=== PATIENT | male | born 1940 | race Caucasian/White ===

== ENCOUNTER 2019-10-11 03:01 | Observation (INO) | payer MEDICARE, BC ==
[2019-10-11] MEDS ORDERED: Acetaminophen 325 MG TAB PO PRN (04:20)
[2019-10-11] MEDS ORDERED: Acetaminophen 650 MG Suppository PR PRN (04:20)
--- NOTE | 2019-10-11 04:26 | PDOC.HHP ---
Hospitalist HPI - History of Present Illness Unsteady History of Present Illness: Patient presents complaining of sudden weakness/unsteadiness that started around 10pm last night. He states he had gotten home from [employer] and sat down to watch TV. When he got up after a while he noted weakness in his legs which he states felt "wobbly". Denies any dizziness/spinning sensation. No shortness of breath or chest pain. Denies any headache. He walked to and continued to feel unsteady. He took a shower and reports feeling as if his legs would give out. Denies feeling unwell in recent days. No n/v. No abdo pain. No stool changes. Overall has felt well in himself. ED Course: He was seen in [place] initially and underwent CT imaging of the brain that showed no acute changes. Labs done were unremarkable. Urinalysis normal. CXR unremarkable. patient was treated with aspirin 324 mg, meclizine and given 500 cc NS IV. Hospitalist ROS - Review of Systems Constitutional: reports: weakness. denies: fever, chills, sweats, malaise, other Eyes: denies: pain, vision change, conjunctivae inflammation, eyelid inflammation, redness, other ENT: denies: ear pain, ear discharge, nose pain, nose discharge, nose congestion , mouth pain, mouth swelling, throat pain, throat swelling, other Respiratory: denies: cough, dry, shortness of breath, hemoptysis, SOB with excertion, pleuritic pain, sputum, wheezing, other Cardiovascular: denies: chest pain, palpitations, orthopnea, paroxysmal noc. dyspnea, edema, light headedness, other Gastrointestinal: denies: nausea, vomiting, abdominal pain, diarrhea, constipation, melena, hematochezia, other Genitourinary: denies: dysuria, frequency, incontinence, hematuria, retention, other Musculoskeletal: denies: neck pain, shoulder pain, arm pain, back pain, hand pain, leg pain, foot pain, other Skin: denies: rash, lesions, gregorio, bruising, other Neurological: denies: weakness, numbness, incoordination, change in speech, confusion, seizures, other Hospitalist History - Past Medical History Source: patient Cardiac: reports: HTN ENT: reports: Other (Hard of hearing) - Past Surgical History Past Surgical History: reports: Cholecystectomy, Other (prostate reduction) - Family History Family History: reports: no pertinent history - Social History Smoking Status: Never smoker Alcohol: reports: None Drugs: reports: none Living Situation: With Family Activity level: independent ambulation (at baseline) - Exam General Appearance: NAD, awake alert Eye: PERRL, anicteric sclera ENT: normocephalic atraumatic, no oropharyngeal lesions, moist mucosa Neck: supple, symmetric, no lymphadenopathy Heart: normal peripheral pulses, irregular Respiratory: CTAB, no wheezes, no rales, no ronchi, normal chest expansion Gastrointestinal: soft, non-tender, non-distended, normal bowel sounds, no guarding, no rigidity Extremities: no edema Skin: normal turgor, no lesions, no rashes Neurological: cranial nerve grossly intact, normal sensation to touch, no weakness, no focal deficits Musculoskeletal: normal tone, normal strength, no muscle wasting Psychiatric: normal affect, normal behavior, A&O x 3 Hospitalist Results - Radiology Interpretation CT scan - head Status: report reviewed by va Hospitalist H&P A/P - Problem (1) Weakness Code(s): R53.1 - WEAKNESS Status: Acute (2) Irregular heart rate Code(s): I49.9 - CARDIAC ARRHYTHMIA, UNSPECIFIED Status: Acute (3) Hypertension Code(s): I10 - ESSENTIAL (PRIMARY) HYPERTENSION Status: Acute (4) Hyperlipidemia Code(s): E78.5 - HYPERLIPIDEMIA, UNSPECIFIED Status: Acute - Plan Plan: Obtain baseline EKG. Orthostatic BPs. Add-on lactic acid and procalcitonin. Continuous cardiac monitoring. Monitor BP. resume home meds once verified. MRI brain in AM as per discussion with Dr. Malik. PT/OT. GI Prophylaxis with Famotidine. Code status: FULL. Surrogate decision maker is his : Gerri Krishnamurthy.
[2019-10-11 05:09] VITALS: BMI 30.4
[2019-10-11 07:41] VITALS: TEMP 97.8
--- NOTE | 2019-10-11 08:46 | MRI ---
MRI BRAIN WITHOUT CONTRAST: HISTORY: TIA CORRELATION: CT scan from 10/11/2019. FINDINGS: No restricted diffusion is seen. There are a few foci of T2 prolongation in the periventricular white matter, consistent with mild chronic small vessel ischemic disease. The ventricular size is appropriate and the basilar cisterns are patent. No evidence of acute infarct, hemorrhage, midline shift or abnormal extra-axial fluid collections is seen. There is mild mucosal disease in the paranasal sinuses. IMPRESSION: No evidence of acute intracranial process.
[2019-10-11] MEDS ORDERED: Famotidine/PF 20 mg/2ml Vial SLOW IVP SCH (09:00)
[2019-10-11] MEDS ORDERED: Aspirin 81 mg Enteric Coated Tablet PO SCH (09:00)
[2019-10-11 12:13] VITALS: BP 176/94
--- NOTE | 2019-10-12 03:20 | DIS ---
DATE OF ADMISSION: 10/11/2019 DATE OF DISCHARGE: 10/11/2019 PRIMARY CARE PHYSICIAN: Anival Black MD. REASON FOR ADMISSION: Weakness and unsteadiness. DISCHARGE DIAGNOSES: 1. Dehydration. 2. Weakness, resolved. 3. Hypertension. 4. Hyperlipidemia. PROCEDURES: 1. CT of the brain in [place] showing no acute intracranial abnormalities. 2. MRI of the brain showing no evidence of acute intracranial process. CONSULTATIONS: None. SUMMARY OF HOSPITAL COURSE: This is a 78-year-old white male who started to feel unsteady on his feet and weakness around 10 p.m. the night before. He had been out traveling to go to [employer] during the day, had not drunk much in the way of fluids. He denies any other symptoms. He came into the [facility]. They did a CT of the brain with no acute changes. He was given meclizine 500 mL of normal saline and aspirin and transferred here in our hospital. He has remained asymptomatic. No more weakness. No dizziness at all. He did have an MRI of the brain, which was normal. He was monitored on color television console monitor overnight with no evidence of arrhythmias. He stated that he had started feeling better after getting the fluid in the outside emergency room. On exam later in the day of his admission, he had a normal physical exam and was ready to go home. DISCHARGE MANAGEMENT: Discharged home. ACTIVITY: As tolerated. DIET: Healthy heart diet. FOLLOWUP: Follow up with Dr. Anival Black in 7 days. Pending results, he had an echocardiogram, that is not yet read. Dr. Black can look up and follow up on those results. MEDICATIONS: 1. Amitriptyline 10 mg at night. 2. Losartan 25 mg at night. Job ID: [id number]
== END 2019-10-11 11:02 | disposition home or self-care (01) ==
LOC: ERS 03:01 → ERHOLD 03:48 → 2SW 05:02
PROVIDERS: ADMIT Internal Medicine; ATTEND Internal Medicine
DX: R53.1 Weakness (principal); E86.0 Dehydration; I10 Essential (primary) hypertension; E78.5 Hyperlipidemia, unspecified; I49.9 Cardiac arrhythmia, unspecified; Z79.899 Other long term (current) drug therapy; Z88.1 Allergy status to other antibiotic agents; Z88.2 Allergy status to sulfonamides; Z91.048 Other nonmedicinal substance allergy status
CPT/HCPCS: 70551; 93005; 93306; 97139 ×3; 99285; G0378 ×2; 93010

== ENCOUNTER 2019-11-14 10:23 | Outpatient (CLI) | payer MEDICARE, BC ==
--- NOTE | 2019-11-14 12:30 | CT ---
CT ABDOMEN AND PELVIS WITH AND WITHOUT IV CONTRAST: HISTORY: Gross hematuria. COMPARISON: None. FINDINGS: There are minimal dependent changes in the lung bases. There are cysts in the liver measuring 3.8 cm in the right lobe and 12 mm in the left lobe. The spleen, pancreas, and adrenal glands are normal. The patient is post cholecystectomy. There is a 3 mm calculus in the inferior pole of the left kidney. No calculi are seen in the right k idney, either ureter, or the urinary bladder. No hydroureteral nephrosis is seen on either side. Th ere is a 3.8 cm parapelvic cyst and a 2 cm cortical cyst in the left kidney. No enhancing renal mass is seen on either side. There is normal contrast excretion into the ureters or the urinary bladder. The prostate is enlarged. No free air, free fluid, or lymphadenopathy is seen in the abdomen or pelvis. There are vascular caprice cifications without evidence of aneurysmal dilatation of the abdominal aorta. There are degenerative changes in the spine. The small bowel loops are not abnormally dilated. There is sigmoid diverticu losis without diverticulitis. IMPRESSION: 1. Liver cysts. 2. Left renal cyst. 3. Tiny 3 mm nonobstructing left renal calculus. 4. Prostatic enlargement. 5. Sigmoid diverticulosis. POS: [facility]
== END 2019-11-14 10:24 | disposition home or self-care (01) ==
LOC: BICCT 10:23
PROVIDERS: ATTEND Urology
DX: R31.0 Gross hematuria (principal); N28.1 Cyst of kidney, acquired; K76.89 Other specified diseases of liver; N20.0 Calculus of kidney; N40.0 Benign prostatic hyperplasia without lower urinary tract symptoms; K57.30 Diverticulosis of large intestine without perforation or abscess without bleeding
CPT/HCPCS: 74178; 82565

== ENCOUNTER 2019-11-20 16:44 | Outpatient (CLI) | payer MEDICARE, BC ==
[2019-11-20 17:38] LABS: Hemoglobin 16.6 g/dL (14.0-18.0); Mean Corpuscular HGB CONC 37.4 g/dL (32.0-36.0); Mean Corpuscular Hemoglobin 34.1 pg (27.0-31.0); Mean Corpuscular Volume 91.1 fL (78.0-98.0); Mean Platelet Volume 8.7 fL (7.4-10.4); Platelet Count 200 thou/uL (130-400); RBC Distribution Width 11.5 % (11.5-14.5); Red Blood Cell (RBC) Count 4.88 mill/uL (4.70-6.10); White Blood Cell (WBC) Count 8.7 thou/uL (4.8-10.8)
[2019-11-20 17:43] LABS: INR-International Normal Ratio 0.9; PTT 29.8 SEC (22.9-36.1); Prothrombin Time 12.4 SEC (12.0-14.7)
[2019-11-20 17:56] LABS: Anion Gap 14 mmol/L (10-20); BUN (Urea Nitrogen) 19 mg/dL (8.4-25.7); Calc. Creatinine Clearance 0 mL/min (70-130); Calcium 9.4 mg/dL (7.8-10.44); Carbon Dioxide 26 mmol/L (23-31); Chloride 102 mmol/L (98-107); Estimated GFR-MDRD 72; Glucose 102 mg/dL (83-110); Potassium 4.8 mmol/L (3.5-5.1); Sodium 137 mmol/L (136-145)
== END 2019-11-20 16:45 | disposition home or self-care (01) ==
LOC: LABBT 16:44
PROVIDERS: ATTEND Urology
DX: Z01.812 Encounter for preprocedural laboratory examination (principal); R31.0 Gross hematuria; N40.1 Benign prostatic hyperplasia with lower urinary tract symptoms; R39.12 Poor urinary stream
CPT/HCPCS: 80048; 81001; 85027; 85610; 85730; 87086

== ENCOUNTER 2019-11-22 08:33 | Observation (INO) | payer MEDICARE, BC ==
[2019-11-20 17:01] VITALS: BMI 30.4
[2019-11-22] MEDS ORDERED: PROPOFOL 200 MG/20 ML VIAL ONE (10:07)
[2019-11-22] MEDS ORDERED: Ondansetron PF 4 MG/2 ML Vial ONE (10:07)
[2019-11-22] MEDS ORDERED: Lidocaine 1% PF 5 ML VIAL ONE (10:07)
[2019-11-22] MEDS ORDERED: Levofloxacin 500 mg/D5W 100 ml Premix Bag ONE (11:45)
[2019-11-22] MEDS ORDERED: B & O ONE (12:02)
[2019-11-22] MEDS ORDERED: Fentanyl 100 MCG/2 ML VIAL ONE ×2 (12:18→13:59)
--- NOTE | 2019-11-22 12:23 | EKG ---
Test Reason : PREOP Blood Pressure : / mmHG Vent. Rate : 059 BPM Atrial Rate : 059 BPM P-R Int : 154 ms QRS Dur : 096 ms QT Int : 428 ms P-R-T Axes : 061 -35 047 degrees QTc Int : 423 ms Sinus bradycardia Left axis deviation Abnormal ECG When compared with ECG of 11-OCT-2019 07:19, (Unconfirmed) No significant change was found Confirmed by ALEC FRITZ, DR. S. (4) on 11/22/2019 12:22:48 PM Referred By: FARHAT Confirmed By:DR. Sunil MICHAEL MD
[2019-11-22] MEDS ORDERED: Ondansetron PF 4 MG/2 ML Vial IVP PRN (13:18)
[2019-11-22] MEDS ORDERED: hydrALAZINE 20 MG/ML VIAL SLOW IVP PRN (13:18)
[2019-11-22] MEDS ORDERED: Bisacodyl 10 MG SUPP PR PRN (13:18)
[2019-11-22] MEDS ORDERED: Acetaminophen 500 MG TAB PO PRN (13:18)
[2019-11-22] MEDS ORDERED: Hyoscyamine Sulfate SL 0.125 mg Tablet SL PRN (13:18)
[2019-11-22] MEDS ORDERED: Morphine 2 MG/ML SYRINGE SLOW IVP PRN (13:18)
[2019-11-22] MEDS ORDERED: Mag-Al 1200 mg/1200 mg/30 ML UDCUP PO PRN (13:18)
[2019-11-22] MEDS ORDERED: Phenazopyridine HCl 97.5 MG TABLET PO PRN (13:18)
[2019-11-22] MEDS ORDERED: Hyoscyamine Sulfate SL 0.125 mg Tablet ONE ×2 (14:25→14:27)
[2019-11-22] MEDS ORDERED: Phenazopyridine HCl 97.5 MG TABLET ONE ×2 (14:26→14:27)
[2019-11-22] MEDS: traMADol HCl 50 MG TAB PO PRN ×2 (16:20→22:03)
--- NOTE | 2019-11-22 19:42 | OP ---
DATE OF PROCEDURE: 11/22/2019 SERVICES: Urology. PREOPERATIVE DIAGNOSIS: Gross hematuria and BPH. POSTOPERATIVE DIAGNOSIS: Gross hematuria and BPH. PROCEDURE PERFORMED: Transurethral vaporization of prostate. INDICATION FOR PROCEDURE: Mr. Krishnamurthy is a 79-year-old white male with prior history of gross hematuria, urinary retention and BPH. He underwent TURP in the past and has recovered quite well from this. Unfortunately, the patient recently began having gross hematuria about 3 years after his original surgery. He was also complaining of urinary symptoms. Cystoscopy in the office demonstrated a bleeding vessel near the bladder neck as well as distal regrowth of the prostate. I have discussed transurethral vaporization of prostate with him along with fulguration of bleeding vessels with all risks and benefits and he has agreed to proceed forward. DESCRIPTION OF PROCEDURE: After identification of armband and verification of consent, the patient was brought back to the operating room and he underwent general anesthesia with an LMA. He was then placed in dorsal lithotomy position and prepped and draped in sterile fashion. After appropriate time-out lubricated, 26-Japanese resectoscope sheath was passed with ease through the urethra into the bladder. The prostate did show distal regrowth as previously had been described on outpatient cystoscopy. The visual obturator was switched out for the bipolar plasma button loop for the gyrus resectoscope. The bladder neck was fulgurated and cauterized into the bleeding vessels that had all been completely destroyed and fulgurated circumferentially around the bladder neck. Any large vessels that were identified were fulgurated and cauterized. The distal regrowth was then vaporized down until flushed with the rest of the prostate tissue. There was minimal regrowth of the prostate tissue, but since the patient is in the operating room, I went ahead and re-vaporized the prostate circumferentially from the prostate to the verumontanum to ensure that the patient has maximum amount of prostate removal. Upon completion, there was excellent hemostasis. There was no tissue specimen secondary to vaporization. Any areas that were even mildly bleeding were cauterized. Upon completion, both ureters were in orthotopic location unharmed. The resectoscope was removed and attempts to pass an 18-Japanese Perez catheter were unsuccessful secondary to coiling in the bulbar urethra. The cystoscope was then used to guide back into the patient's bladder and a Amplatz Super Stiff wire was then placed into the patient's bladder and then the cystoscope removed. An 18-Japanese Councill tip catheter was then placed over the Super Stiff wire to the bladder and 20 mL of sterile water placed into the balloon. The wire was then removed and the catheter affixed to gravity drainage. B and O suppository were placed in the patient's rectum. He was then awakened, taken out of positioning, and taken to PACU for recovery in stable condition. COMPLICATIONS: None. ESTIMATED BLOOD LOSS: Minimal. RETAINED TUBES AND DRAINS: An 18-Japanese Perez catheter with 20 mL of sterile water in the balloon. SPECIMENS: None. DISPOSITION: The patient will be kept in the hospital overnight with catheter drainage. We will plan a void trial in the morning and discharge with followup on an outpatient basis. Job ID: [id number]
[2019-11-22] MEDS ORDERED: Amitriptyline HCl 10 MG TAB PO SCH (21:00)
[2019-11-22] MEDS: Trospium 20 MG TAB PO SCH (22:02)
[2019-11-22] MEDS: Docusate 100 MG CAP PO SCH (22:03)
[2019-11-22] MEDS: Carvedilol 6.25 MG TAB PO SCH (22:03)
[2019-11-23 05:25] LABS: #Eosinphils 0.5 thou/uL (0.0-0.7); #Lymphocytes 2.1 thou/uL (1.20-3.40); #Monocytes 1.2 thou/uL (0.11-0.59); #Neutrophils 6.8 thou/uL (1.40-6.50); %Basophils 0.3 % (0.0-1.0); %Eosinophils 4.3 % (0.0-10.0); %Lymphocytes 19.5 % (21.0-51.0); %Monocytes 11.3 % (0.0-10.0); %Neutrophils 64.6 % (42.0-75.0); Mean Corpuscular HGB CONC 33.5 g/dL (32.0-36.0); Mean Corpuscular Hemoglobin 30.8 pg (27.0-31.0); Mean Corpuscular Volume 91.9 fL (78.0-98.0); Mean Platelet Volume 8.5 fL (7.4-10.4); Platelet Count 181 thou/uL (130-400); RBC Distribution Width 11.6 % (11.5-14.5); Red Blood Cell (RBC) Count 4.56 mill/uL (4.70-6.10); White Blood Cell (WBC) Count 10.5 thou/uL (4.8-10.8)
[2019-11-23 05:46] LABS: Anion Gap 9 mmol/L (10-20); BUN (Urea Nitrogen) 10 mg/dL (8.4-25.7); Calc. Creatinine Clearance 78 mL/min (70-130); Calcium 8.4 mg/dL (7.8-10.44); Carbon Dioxide 28 mmol/L (23-31); Chloride 103 mmol/L (98-107); Estimated GFR-MDRD 74; Glucose 82 mg/dL (83-110); Potassium 3.8 mmol/L (3.5-5.1); Sodium 136 mmol/L (136-145)
[2019-11-23 07:41] VITALS: TEMP 97.6
[2019-11-23] MEDS: Carvedilol 6.25 MG TAB PO SCH (09:03)
[2019-11-23] MEDS: Trospium 20 MG TAB PO SCH (09:03)
[2019-11-23] MEDS: Docusate 100 MG CAP PO SCH (09:03)
[2019-11-23 11:48] VITALS: BP 163/85
--- NOTE | 2019-11-23 15:50 | PRG ---
DATE OF SERVICE: 11/23/2019 SUBJECTIVE: The patient states he is feeling fine. He is little bit weak from lying in bed overnight, but otherwise has no complaints or significant pain. OBJECTIVE: VITAL SIGNS: Temperature 97.6, pulse 67, respirations 16, blood pressure 162/85, saturation 95% on room air. GENERAL: No apparent distress. Awake and alert. CARDIOVASCULAR: Regular rate and rhythm. ABDOMEN: Soft, nontender, and nondistended. Positive bowel sounds. : A catheter has been removed this morning. The patient has not yet voided. EXTREMITIES: No clubbing, cyanosis, or edema. LABORATORY EVALUATION: The full set of labs are in the [employer] system, which I have reviewed. Of note, the patient's white count is 10.5, hemoglobin 14, creatinine of 0.98. ASSESSMENT/PLAN: A 79-year-old white male, status post transurethral vaporization of prostate, postop day one. With catheter removed this morning, we are awaiting voids. Once he is able to urinate, we will check to ensure that his urine is not excessively bloody, at which point, he can be discharged home and follow up on an outpatient basis. I have gone over all his discharge instructions with him. Job ID: [id number]
--- NOTE | 2019-11-23 17:18 | DIS ---
DATE OF ADMISSION: 11/22/2019 DATE OF DISCHARGE: 11/23/2019 DISCHARGING PHYSICIAN: Dr. Ruiz. ADMITTING DIAGNOSES: BPH and gross hematuria. DISCHARGE DIAGNOSES: BPH and gross hematuria. PROCEDURE PERFORMED: Transurethral vaporization of prostate. BRIEF HISTORY: Mr. Krishnamurthy is a 79-year-old white male with history of BPH, status post TURP. He had gross hematuria after a flank injury, which was found to be coming from the bladder neck rather than from any renal origin. Due to difficulty with urination and distal prostatic regrowth as well as a bleeding spot in the bladder neck, I recommended we go forward with repeat TUVP. Full H and P can be found in the scanned portion of the [employer] system. HOSPITAL COURSE: After surgery (please see operative note for details), the patient was kept in the hospital overnight for bleeding monitoring. He just had an 18-Tajik Perez catheter in, which drained clear yellow urine over the course of the night. The catheter was removed in the morning. The patient then voided 2 voids of a light red urine. The patient was deemed stable enough to go home. He did have a little bit of weakness, but otherwise was stable on his feet and able to ambulate on his own. I did offer to keep him longer if he desired to consider physical therapy, but he does appear to be walking on his own, just slightly unsteady. We had a discussion regarding fall risk management and the patient understands and will have help from his at home and will notify me should he get any worse or any weaker. DISPOSITION: Discharged to home. DISCHARGE CONDITION: Stable. DISCHARGE MEDICATIONS: Please see medication reconciliation. DISCHARGE INSTRUCTIONS: Were explained to the patient. Followup will be in approximately 1 to 2 weeks for a postop check. Job ID: [id number]
== END 2019-11-23 15:10 | disposition home or self-care (01) ==
LOC: SDC 08:33 → SURG A 13:22
PROVIDERS: ADMIT Urology; ATTEND Urology
PROC: 0V507ZZ Destruction of Prostate, Via Natural or Artificial Opening (ICD-10-PCS; principal; 2019-11-22)
DX: N40.1 Benign prostatic hyperplasia with lower urinary tract symptoms (principal); N39.41 Urge incontinence; R39.12 Poor urinary stream; R33.8 Other retention of urine; R31.0 Gross hematuria; G89.29 Other chronic pain; M54.9 Dorsalgia, unspecified; Z79.899 Other long term (current) drug therapy; Z88.1 Allergy status to other antibiotic agents; Z88.2 Allergy status to sulfonamides; Z91.048 Other nonmedicinal substance allergy status
CPT/HCPCS: 36415; 80048; 85025; 93005; 93010; 96365; G0378; J1956; J2001; J2405; J2704; J3010

== ENCOUNTER 2021-07-09 08:18 | Outpatient (CLI) | payer MEDICARE, BC | END 2021-07-09 08:19 | disposition home or self-care (01) | LOC: NM 08:18 | PROVIDERS: ATTEND Psychiatry & Neurology Neurology | DX: G20 Parkinson's disease (principal); H53.2 Diplopia | CPT/HCPCS: 78803; A9584 ==

== ENCOUNTER 2024-01-10 17:13 | Emergency (ER) | payer MEDICARE ==
[~2024-01-10 17:13] MED LIST: Iopamidol-370 76% 500 ML MDV (1 ML CHARGE) ONE
[2024-01-10 18:45] LABS: #Basophils Less than 0.03 10x3/uL (0.0-0.2); %Basophils 0.2 % (0.0-1.0); %Eosinophils 2.1 % (0.0-10.0); %Lymphocytes 16.4 % (21.0-51.0); %Monocytes 13.9 % (0.0-10.0); %Neutrophils 66.7 % (42.0-75.0); Hematocrit 41.9 % (42.0-52.0); Hemoglobin 14.2 g/dL (14.0-18.0); Mean Corpuscular HGB CONC 33.9 g/dL (32.0-36.0); Mean Corpuscular Hemoglobin 30.1 pg (27.0-31.0); Mean Platelet Volume 9.6 fL (7.4-10.4); Platelet Count 293 10x3/uL (130-400); RBC Distribution Width 12.7 % (11.5-14.5); Red Blood Cell (RBC) Count 4.71 mill/uL (4.70-6.10)
[2024-01-10 19:40] LABS: ALT (SGPT) 11 U/L (8-55); AST (SGOT) 19 U/L (5-34); Albumin 3.7 g/dL (3.4-4.8); Alkaline Phosphatase 66 U/L (40-110); Anion Gap 14 mmol/L (10-20); BUN (Urea Nitrogen) 8 mg/dL (8.4-25.7); Bilirubin, Total 0.5 mg/dL (0.2-1.2); Calc. Creatinine Clearance 0 mL/min (70-130); Calcium 9.3 mg/dL (7.8-10.44); Carbon Dioxide 25 mmol/L (23-31); Chloride 96 mmol/L (98-107); Estimated GFR 87; Glucose 104 mg/dL (83-110); Potassium 3.9 mmol/L (3.5-5.1); Protein, Total 6.7 g/dL (5.8-8.1); Sodium 131 mmol/L (136-145)
[2024-01-10 20:44] LABS: Lipase 25 U/L (8-78); Magnesium 2.3 mg/dL (1.6-2.6)
[2024-01-10 21:35] LABS: Troponin I Less than 0.010 ng/mL (< 0.028)
[2024-01-10 22:53] LABS: Bacteria/HPF None Seen HPF (None Seen); Bilirubin Negative (Negative); Blood, Urine 2+ (Negative); CAUTI Indications for Culture Pelvic or flank pain; Clarity Clear (Clear); Glucose, Urine (Dipstick) Normal (Negative); Ketone, Urine Trace mg/dL (Negative); Leukocyte 250 Leu/uL (Negative); Nitrite Negative (Negative); Protein, Urine (Dipstick) Negative (Neg-Trace); RBC/HPF Greater than 50 HPF (0-3); Specific Gravity, Urine 1.041 (1.002-1.036); Squamous Epithelial None Seen HPF (0-3); Urobilinogen Normal mg/dL (Less than 2)
[2024-01-10 22:54] LABS: Urine Culture Reflex Yes Yes
[2024-01-10] MEDS ORDERED: Mineral Oil ENEMA PR SCH (23:15)
== END 2024-01-11 00:54 | disposition home or self-care (01) ==
LOC: ERS 17:13
DX: K59.00 Constipation, unspecified (principal); I10 Essential (primary) hypertension
CPT/HCPCS: 36415; 74018; 74177; 80053; 81001; 83605; 83690; 83735; 84484; 85025; 87086; Q9967

== ENCOUNTER 2024-06-04 10:04 | Outpatient (CLI) | payer MEDICARE | END 2024-06-04 10:05 | disposition home or self-care (01) | LOC: BICCT 10:04 | PROVIDERS: ATTEND Psychiatry & Neurology Neurology | DX: G20.A1 Parkinson's disease without dyskinesia, without mention of fluctuations (principal); G93.89 Other specified disorders of brain; I67.89 Other cerebrovascular disease | CPT/HCPCS: 70450 ==

== ENCOUNTER 2024-06-18 06:22 | Day surgery (SDC) | payer MEDICARE ==
[2024-06-15 09:26] VITALS: BMI 21.6
[2024-06-18] MEDS ORDERED: PROPOFOL 20 ML ONE (07:23)
[2024-06-18] MEDS ORDERED: LevoFLOXacin D5W 500 mg (100 mL) BAG ONE (07:32)
[2024-06-18] MEDS ORDERED: fentaNYL 50 mcg/mL 1 mL Vial ONE ×2 (07:37→07:50)
== END 2024-06-18 09:08 | disposition home or self-care (01) ==
LOC: SDC 06:22
PROVIDERS: ATTEND Internal Medicine Gastroenterology
PROC: 0DH63UZ Insertion of Feeding Device into Stomach, Percutaneous Approach (ICD-10-PCS; principal; 2024-06-18)
DX: G20.A1 Parkinson's disease without dyskinesia, without mention of fluctuations (principal); R13.10 Dysphagia, unspecified; K44.9 Diaphragmatic hernia without obstruction or gangrene; E46 Unspecified protein-calorie malnutrition; R63.4 Abnormal weight loss; K59.00 Constipation, unspecified; Z68.21 Body mass index [BMI] 21.0-21.9, adult; Z91.040 Latex allergy status; Z88.2 Allergy status to sulfonamides; Z88.1 Allergy status to other antibiotic agents; Z79.899 Other long term (current) drug therapy
CPT/HCPCS: 43246; B4087; J1956; J2704; J3010

== ENCOUNTER 2024-07-06 09:17 | Day surgery (SDC) | payer MEDICARE ==
[2024-07-04 15:00] VITALS: BMI 21.2
[2024-07-06] MEDS ORDERED: fentaNYL PF 100 MCG/2 ML SYRINGE ONE (11:46)
[2024-07-06] MEDS ORDERED: Rocuronium Bromide 10 MG/ML (10ML VIAL) ONE (11:47)
[2024-07-06] MEDS ORDERED: ePHEDrine Sulfate 50 MG/10 ML VIAL ONE (11:47)
[2024-07-06] MEDS ORDERED: PROPOFOL 20 ML ONE (11:47)
[2024-07-06] MEDS ORDERED: Lidocaine 1% PF 5 ML VIAL ONE ×2 (11:47→12:16)
[2024-07-06] MEDS ORDERED: Ondansetron PF 4 MG/2 ML Vial ONE (11:47)
[2024-07-06] MEDS ORDERED: EPINEPHrine 1 MG/ML VIAL ONE (12:16)
[2024-07-06] MEDS ORDERED: Bupivacaine PF 0.5% 30 ML VIAL ONE (12:16)
[2024-07-06] MEDS ORDERED: Propofol 1,000 MG/100 ML VIAL IV ONE (12:19)
[2024-07-06] MEDS ORDERED: LevoFLOXacin D5W 500 mg (100 mL) BAG ONE (12:28)
[2024-07-06] MEDS ORDERED: PHENYLEPHRINE-NS 100 MCG/ML 10 ML SYRINGE ONE (12:57)
[2024-07-06] MEDS ORDERED: SUGAMMADEX SODIUM 200 MG/2 ML VIAL ONE (13:07)
== END 2024-07-06 15:25 | disposition home or self-care (01) ==
LOC: SDC 09:17
PROVIDERS: ATTEND Surgery
PROC: 0DH63UZ Insertion of Feeding Device into Stomach, Percutaneous Approach (ICD-10-PCS; principal; 2024-07-06)
DX: R13.12 Dysphagia, oropharyngeal phase (principal); G20.A1 Parkinson's disease without dyskinesia, without mention of fluctuations; Z79.899 Other long term (current) drug therapy; Z79.82 Long term (current) use of aspirin; Z88.8 Allergy status to other drugs, medicaments and biological substances; Z88.1 Allergy status to other antibiotic agents; Z88.2 Allergy status to sulfonamides
CPT/HCPCS: 43246; B4087; J1956; J2405; J2704 ×2; J0171; J0665